=== PATIENT | female | born 1945 | race Caucasian/White ===

== ENCOUNTER → 2017-01-30 | Outpatient (CLI) | payer OTHER | LOC: FIMAGING 14:01 | PROVIDERS: ATTEND Podiatrist Primary Podiatric Medicine | DX: S91.302A Unspecified open wound, left foot, initial encounter (principal) ==

== ENCOUNTER 2018-01-26 09:21 | Observation (INO) | payer OTHER ==
[~2018-01-26 09:21] MED LIST: VANCOMYCIN PHARMACY TO DOSE MISC ONE
--- NOTE | 2018-01-26 10:29 | PDHPUP ---
History & Physical Update H&P update statement: This history and physical update is based on an assessment of the patient which was completed after admission or registration (within 24 hours), but prior to the surgery/procedure. H&P update: H&P reviewed & patient examined, no change in patient's condition since H&P completed
[2018-01-26] MEDS ORDERED: VANCOMYCIN 1.75 GM in D5W 500 ML IV ONE (10:30)
[2018-01-26] MEDS ORDERED: LR 1,000 ML IV ONE (10:50)
[2018-01-26] MEDS ORDERED: MIDAZOLAM 2 MG/2 ML VIAL IVP ONE (11:47)
--- NOTE | 2018-01-26 11:59 | PDANEPAE ---
ANE History of Present Illness Ventral hernia repair ANE Past Medical History - Cardiovascular History Hx Hypertension: Yes Hx Arrhythmias: No Hx Chest Pain: No Hx Coronary Artery / Peripheral Vascular Disease: No Hx CHF / Valvular Disease: No Hx Palpitations: No Cardiovascular History Comment: PCP MONITORS BP MEDICATIONS - Pulmonary History Hx COPD: No Hx Asthma/Reactive Airway Disease: No Hx Recent Upper Respiratory Infection: No Hx Oxygen in Use at Home: Yes O2 in Use at Home (L/minute): 2L CONT AT HOME Hx Sleep Apnea: Yes Sleep Apnea Screening Result - Last Documented: Positive Pulmonary History Comment: [place] [address] [place] [facility]- HAS HIGH ALTITUDE HYPOXIA. [place] O2 IN [place] - Neurologic History Hx Cerebrovascular Accident: No Hx Seizures: No Hx Dementia: No Neurologic History Comment: PERIPHERAL NEUROPATHY - Endocrine History Hx Diabetes: Yes Hypothyroid: No Endocrine History Comment: TYPE 2. HYPOTHYROIDISM - Renal History Hx Renal Disorders: Yes Renal History Comment: OVERACTIVE BLADDER - Liver History Hx Hepatic Disorders: No - Neurological & Psychiatric Hx Hx Neurological and Psychiatric Disorders: Yes Neurological / Psychiatric History Comment: DEPRESSION - Cancer History Hx Cancer: No - Congenital Disorder History Hx Congenital Disorders: No - GI History GERD: moderate Hx Gastrointestinal Disorders: Yes Gastrointestinal History Comment: REFLUX - Other Health History Other Health History: WEARS GLASSES - Chronic Pain History Chronic Pain: No - Surgical History Prior Surgeries: BILATERAL TKA'S. 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 SHOULDER SURGERIES. ANE Review of Systems Review of Systems: - Exercise capacity METS (RN): 4 METS ANE Patient History - Allergies Allergies/Adverse Reactions: Penicillins Allergy (Verified 01/24/18 15:36) TERRIBLE HIVES Sulfa (Sulfonamide Antibiotics) Allergy (Verified 01/24/18 15:36) CHILD- HASN'T HAD IN YEARS - Home Medications Home medications: home medication list seen and reviewed Home Medications: Aspirin 81mg (*) 01/24/18 [Last Taken 01/24/18] Cymbalta 01/24/18 [Last Taken 01/26/18] Hyzaar 100-12.5 Tablet 01/24/18 [Last Taken 01/25/18] Invokana 01/24/18 [Last Taken 01/25/18] Metformin HCl 01/24/18 [Last Taken 01/24/18] Nortriptyline HCl 01/24/18 [Last Taken 01/25/18] Norvasc 10 mg (*) 10/24/18 [Last Taken 01/26/18] Occuvite 01/24/18 [Last Taken 01/25/18] Pantoprazole Sodium 01/24/18 [Last Taken 01/26/18] Probiotic 01/24/18 [Last Taken 01/25/18] Requip 1mg (*) 01/24/18 [Last Taken 01/25/18] Synthroid 01/24/18 [Last Taken 01/25/18] Tolterodine Tartrate 01/24/18 [Last Taken 01/25/18] traMADol 01/24/18 [Last Taken 01/26/18] - NPO status NPO Status: no food or drink >8 hours NPO Since - Liquids (Date): 01/26/18 NPO Since - Liquids (Time): 08:15 NPO Since - Solids (Date): 01/25/18 NPO Since - Solids (Time): 21:30 - Smoking Hx Smoking Status: Never smoked Marijuana use: No - Alcohol Use Alcohol Use: None - Family Anes Hx Family Anes Hx: none Family Hx Anesthesia Complications: NONE ANE Labs/Vital Signs - Labs Result Diagrams: 01/26/18 10:23 - Vital Signs Blood Pressure: 153/75 Heart Rate: 83 Respiratory Rate: 16 O2 Sat (%): 93 Height: 162.56 cm Weight: 114.305 kg ANE Physical Exam - Airway Neck exam: FROM, decreased ROM Mallampati Score: Class 3 - Pulmonary Pulmonary: no respiratory distress - Cardiovascular Cardiovascular: regular rate and rhythym - ASA Status ASA Status: III ANE Anesthesia Plan Anesthesia Plan: general endotracheal anesthesia Specialized Airway: video laryngoscope
[2018-01-26] MEDS ORDERED: BUPIVACAINE 0.5% 30 ML SDV ONE (12:15)
[2018-01-26] MEDS ORDERED: PROPOFOL/EMULSION 500 MG/50 ML BOTTLE IV ONE ×2 (12:38)
[2018-01-26] MEDS ORDERED: fentaNYL 250 MCG/5 ML INJ ONE (12:38)
[2018-01-26] MEDS ORDERED: SUCCINYLCHOLINE CHLORIDE 200 MG/10 ML SYR IVP ONE (12:39)
[2018-01-26] MEDS ORDERED: LIDOCAINE 2% 2 ML INJ ONE (12:39)
[2018-01-26] MEDS ORDERED: ROCURONIUM 50 MG/5 ML VIAL ONE (12:39)
[2018-01-26] MEDS ORDERED: KETOROLAC 30 MG/1 ML SDV ONE ×3 (13:05)
[2018-01-26] MEDS ORDERED: DEXAMETHASONE 4 MG/ML VIAL ONE ×2 (13:06)
[2018-01-26] MEDS ORDERED: ONDANSETRON 4 MG/2 ML VIAL IVP PRN (13:48)
[2018-01-26] MEDS ORDERED: NALOXONE HCL 0.4 MG/ML INJ IVP PRN (13:48)
[2018-01-26] MEDS ORDERED: ACETAMINOPHEN 500 MG TAB PO PRN (13:48)
[2018-01-26] MEDS ORDERED: fentaNYL 100 MCG/2 ML INJ IVP PRN (13:48)
[2018-01-26] MEDS ORDERED: HYDROmorphONE/DILAUDID 2 MG/ML INJ IVP PRN (13:48)
[2018-01-26] MEDS ORDERED: HYDROCODONE/APAP 5/325 TAB PO PRN (13:48)
[2018-01-26] MEDS ORDERED: oxyCODONE IR 5 MG TAB PO PRN (13:48)
[2018-01-26] MEDS ORDERED: LIDOCAINE 1% 300 MG/30 ML SDV ONE (14:13)
[2018-01-26] MEDS ORDERED: GLYCOPYRROLATE 0.2 MG/1 ML VIAL ONE ×3 (14:35)
[2018-01-26] MEDS ORDERED: ROPIVACAINE HCL 150 MG/30 ML INJ ONE (14:35)
[2018-01-26] MEDS ORDERED: HYDROmorphONE/DILAUDID 1 MG/ML INJ IVP PRN (15:23)
[2018-01-26] MEDS ORDERED: ONDANSETRON DISINTEGRATING 4 MG TAB PO PRN (15:23)
[2018-01-26] MEDS: oxyCODONE IR 5 MG TAB PO PRN ×2 (17:18→21:26)
--- NOTE | 2018-01-26 17:34 | POSTANESTH ---
Post Anesthetic Evaluation Cardiovascular Status: Normal, Stable Respiratory Status: Tx Decrease in SpO2 Level of Consciousness/Mental Status: Can Participate in Eval Pain Control: Adequate, Prn Tx Ordered Nausea/Vomiting Control: Adequate, Prn Tx Ordered Complications Possibly Related to Anesthesia: None Noted (No pain pacu)
[2018-01-26] MEDS ORDERED: ACETAMINOPHEN 325 MG TAB PO PRN (18:12)
[2018-01-26] MEDS ORDERED: traMADol 50 MG TAB PO PRN (20:43)
[2018-01-26] MEDS ORDERED: NORTRIPTYLINE HCL 50 MG CAP PO SCH (21:00)
[2018-01-26] MEDS: PANTOPRAZOLE SODIUM 40 MG TAB PO SCH (21:26)
[2018-01-27] MEDS ORDERED: LEVOTHYROXINE 175 MCG TAB PO SCH (06:00)
[2018-01-27] MEDS: oxyCODONE IR 5 MG TAB PO PRN ×2 (06:12→10:52)
[2018-01-27 07:53] VITALS: BP 141/73
[2018-01-27] MEDS ORDERED: TOLTERODINE TARTRATE 2 MG EXT REL CAP PO SCH (08:00)
[2018-01-27] MEDS ORDERED: metFORMIN HCL 500 MG TAB PO SCH (08:00)
--- NOTE | 2018-01-27 08:26 | PDDCSUM ---
Discharge Summary Discharge Summary: DISCHARGE SUMMARY Date of Admission 01/26 Date of Discharge 01/27 DISCHARGE DIAGNOSES - ventral hernia HOSPITAL COURSE The patient was admitted after undergoing elective ventral hernia repair. They were subsequently taken to the PACU and then the general medical floor. The hospital course was uneventful, their diet was advanced to a regular diet which was well tolerated and their pain was well controlled. They were discharged home in stable condition on the morning of the with a KAHLIL drain DISCHARGE MEDICATIONS percocet DISPOSITION home FOLLOW UP Follow up with Shankar in the office in 10-14 days for a general post-operative visit
[2018-01-27] MEDS: PANTOPRAZOLE SODIUM 40 MG TAB PO SCH (08:39)
[2018-01-27] MEDS ORDERED: LOSARTAN/HCTZ 50/12.5 1 TAB PO SCH (09:00)
[2018-01-27] MEDS ORDERED: DULoxetine 60 MG CAP PO SCH (09:00)
[2018-01-27] MEDS ORDERED: Canagliflozin [Invokana] 100 MG PO SCH (09:00)
[2018-01-27] MEDS ORDERED: ASPIRIN 81 MG CHEWABLE TAB PO SCH (09:00)
--- NOTE | 2018-01-27 10:08 | ASMTLACE ---
LACE Length of stay for Answers: Less than 1 day current admission Acuity / Level of Answers: No Care: Did the patient have an inpatient admission? Comorbidities - select Answers: Diabetes (uncontrolled or all that apply controlled) Other Notes: HTN # of Emergency department Answers: 0 visits in the last 6 months Social determinants Answers: Mental health diagnosis (anxiety, depression, pers onality disorders, etc.) Score: 5 Date Signed: 01/27/2018 10:07 AM Electronically Signed By:JESUS De La Cruz
--- NOTE | 2018-01-27 10:09 | ASMTDCNOTE ---
Case Management Discharge Discharge Order Complete? Answers: Yes Patient to Obtain Answers: via Family Medications Transportation Arranged Answers: Family/Friends Discharge Comments Notes: Pt is s/p a planned hernia repair. She is discharging home today with her and no CM needs. She will follow up with Dr Chaparro in 10-14 days. Date Signed: 01/27/2018 10:09 AM Electronically Signed By:JESUS De La Cruz
--- NOTE | 2018-01-27 10:13 | ASDISCHSUM ---
Discharge Information Plan Status:Home with No Needs Medically Cleared to Leave:01/27/2018 Discharge Date:01/27/2018 CM D/C Disposition:Home, Routine, Self-Care ADT D/C Disposition:Home, Routine, Self-Care Projected Discharge Date:01/27/2018 Transportation at D/C:Family Discharge Delay Reason: Follow-Up Date:01/27/2018 Discharge Slot: Final Diagnosis: Placement Information Patient Contact Information Contact Name:ESA Relationship:Carlos Address:[address] City:[facility] Phone: [facility]/Zip Code:[place] [address] Email: Financial Information Financial Class:Medicare Primary Plan Desc:MEDICARE INPATIENT Primary Plan Number:[id number] Secondary Plan Desc:LAN Secondary Plan Number:[id number] Assessment Information LACE LACE Length of stay for Answers: Less than 1 day current admission Acuity / Level of Answers: No Care: Did the patient have an inpatient admission? Comorbidities - select Answers: Diabetes (uncontrolled or all that apply controlled) Other Notes: HTN # of Emergency department Answers: 0 visits in the last 6 months Social determinants Answers: Mental health diagnosis (anxiety, depression, pers onality disorders, etc.) Score: 5 Date Signed: 01/27/2018 10:07 AM Electronically Signed By:JESUS De La Cruz Case Management Discharge Plan Note Case Management Discharge Discharge Order Complete? Answers: Yes Patient to Obtain Answers: via Family Medications Transportation Arranged Answers: Family/Friends Discharge Comments Notes: Pt is s/p a planned hernia repair. She is discharging home today with her and no CM needs. She will follow up with Dr Chaparro in 10-14 days. Date Signed: 01/27/2018 10:09 AM Electronically Signed By:JESUS De La Cruz Intervention Information
--- NOTE | 2018-01-29 19:22 | GOP ---
DATE OF OPERATION: 01/26/2018 SURGEON: Tremaine Chaparro MD SCRAP WHEELER: Risa Dubose NP. ANESTHESIOLOGIST: Dr. Marie. PREOPERATIVE DIAGNOSIS: Ventral hernia. POSTOPERATIVE DIAGNOSIS: Ventral hernia x2. PROCEDURE PERFORMED: Open ventral hernia repair x2 with mesh. FINDINGS: Patient was found to have a midline supraumbilical hernia defect, approximately 4 cm in di ameter with incarcerated omental tissue. In addition, a 2nd hernia defect was found approximately 3 cm above this area and measuring 1.5 cm in diameter. DESCRIPTION OF PROCEDURE: The patient was taken to the operating room where she received a satisfact ory general endotracheal anesthesia by Dr. Marie, was placed in the supine position, prepped and liudmila ped in the usual sterile fashion. A vertical incision was made and carried down through subcutaneous tissue. The ventral hernia sac was encountered. It was dissected free from surrounding subcutaneou s tissue and dissected back to the fascial level. The sac was opened at the fascial level. Excess s ac was excised and the omental tissue was reduced back into the abdomen. The fascial edges were free d up. All adhesions were cleared and palpating the abdominal wall, a 2nd defect was discovered just above this defect. The incision was slightly extended and that defect was exposed. It too was opene d at the fascial level, its contents reduced and the excess sac was excised. The wounds were then cl osed using a mesh, subfascial reinforcement with a dual sided combination mesh. This was secured abo ve both defects and around the circumference of both defects with a good 2-3 cm margin. This was don e with interrupted 0 Ethibond mattress sutures. The defect itself was then closed with interrupted # 1 Ethibond [id number] sutures and the small defect was closed in a similar manner. The wound wa s infiltrated with 0.5% Marcaine. Subcu was closed with a running 2-0 Vicryl. A subcu drain had bee n brought out through a separate stab incision, secured to the skin with a silk suture and placed in the hernia space. The skin was closed with 4-0 Monocryl subcuticular stitch. She tolerated the proc edure well, was taken to recovery room in good condition. Copy requested to: Palak Smithalana /[id number]/MODL
== END 2018-01-27 11:03 | disposition home or self-care (01) ==
LOC: F3N 09:21 → F3E 15:50
PROVIDERS: ADMIT Surgery; ATTEND Surgery
PROC: 0WUF0JZ Supplement Abdominal Wall with Synthetic Substitute, Open Approach (ICD-10-PCS; principal; 2018-01-26 11:15)
DX: K43.6 Other and unspecified ventral hernia with obstruction, without gangrene (principal); E11.42 Type 2 diabetes mellitus with diabetic polyneuropathy; E03.9 Hypothyroidism, unspecified; Z88.0 Allergy status to penicillin; F32.9 Major depressive disorder, single episode, unspecified
CPT/HCPCS: C1781; J0330; J1100; J1885; J2250; J2704; J2795; J3010; J3370